=== PATIENT | female | born 1975 | race Caucasian/White ===

== ENCOUNTER → 2023-07-10 | Outpatient (CLI) | payer MEDICAID, SELFPAY ==
--- OUTSIDE RECORDS SUMMARY | 2023-07-10 11:34 | XMS RPT_ITS | CCD ---
Author Name Unknown Address [address] [place] [address] Organization [facility] Care Team Providers Care Hotel Concierge Name Role Phone GIUSEPPE, TAMARA Unavailable Unavailable VACCARIELLO, TAMARA Unavailable Unavailable VACCARIELLO, TAMARA Unavailable Unavailable UMAIR RODRIGUEZ Unavailable Unavailable PROVIDER, UNKNOWN Unavailable Unavailable PROVIDER, UNKNOWN Unavailable Unavailable PROVIDER, UNKNOWN Unavailable Unavailable ENEIDA CAMPOS DO Unavailable Unavailable BETH, ENEIDA DO Unavailable Unavailable BETHMARIA FERNANDA LAZONE DO Unavailable Unavailable Results Test Name Value Interpretation Reference Range Facil ity Encounters Encounter Date Encounter Type Care Provider Facility Start: 07-15-2017 End: 07-15-2017 Ambulatory TAMARA Caputo [facility] Payers Date Payer Category Payer Policy ID [facility] [id number] Summary Purpose Family History No Family History Records FoundNo Family History Records Found Advance Directives No Advanced Directives Records FoundNo Advanced Directives Records Found Additional Source Comments INFORMATION SOURCE (unrecogn ized section and content) DATE CREATED AUTHOR AUTHOR'S ASAD ATION 12/11/2021 [facility] FOR RECORDS PERTAINING TO PATIENTS WHO ARE OR HAVE BEEN ENROLLED IN A CHEMICAL DEPENDENCY/SUBSTANCEABUSE PROGRAM, SOME INFORMATION MAY BE OMITTED. This clinical summary was aggregated from multiple sources. Caution should be exercised in using it in the provision of clinical care. This summary normalizes information from multiple sources, and as a consequence, information in this document may materially change the coding, format and clinical context of patient data. In addition, data may be omitted in some cases. CLINICAL DECISIONS SHOULD BE BASED ON THE PRIMARY CLINICAL RECORDS. [employer] provides no warranty or guarantee of the accuracy or completeness of information in this document.
[2023-07-10 12:02] LABS: Thyroid Stim Hormone (TSH) 1.97 uIU/mL (0.358-3.74)
== END | disposition home or self-care (01) ==
LOC: LAB 10:32
PROVIDERS: PCP Family Medicine; Referring Provider Family Medicine; Visit Provider Family Medicine
DX: E03.9 Hypothyroidism, unspecified (principal)
CPT/HCPCS: 36415; 84443

== ENCOUNTER → 2023-12-11 | Outpatient (CLI) | payer MEDICAID, SELFPAY ==
[2023-12-16 11:09] LABS: HPV APTIMA, High Risk Negative (Negative)
== END | disposition home or self-care (01) ==
LOC: LABSPEC 12:03
PROVIDERS: PCP Family Medicine; Referring Provider Nurse Practitioner Family; Visit Provider Nurse Practitioner Family
DX: Z12.4 Encounter for screening for malignant neoplasm of cervix (principal)
CPT/HCPCS: 87624; 88175; G0145

== ENCOUNTER 2024-04-06 07:09 | Day surgery (SDC) | payer MEDICAID, SELFPAY ==
[2024-04-06] VITALS (8 sets, daily range): BP systolic 95–112; BP diastolic 7–78; PULSE 56–61; RESP 14–18; TEMP 36.1–36.8; O2SAT 96–100; BMI 24.3
[2024-04-06] MEDS: 0.9% Normal Saline (500mL Bag) 500 ML 15 ML IV (07:51)
--- NOTE | 2024-04-06 07:55 | PCM.PRE.AN2 ---
ASA Classification* ASA Classification ASA Classification: 2 Assessment & Plan Anesthesia* Anesthesia Assessment Anesthesia Assessment: Discussed sedation and/or anesthesia options, risks, benefits, and alternatives with patient/parents/legal guardian/POA. Questions invited. The patient/parents/legal guardian/POA seems to understand and agrees to proceed with anesthesia plan. Reviewed the physical assessment, medical history, allergy history and patient home medications list prior to surgery/procedure/anesthetic and documented any changes. Performed airway and anesthesia risk assessments. Anesthesia Type Anesthesia Type: General (see written pre anesthesia record for full assessment) Anesthesia Focused Assessment* Temperature: 98.2 F Pulse Rate: 59 Blood Pressure: 112/78 Respiratory Rate: 18 Pulse Ox: 100 Airway Assessment Mouth opens: >3 cm Mallampati Score: II Focused Labs Anesthesia Preop lab: CBC CHEMISTRY TSH 1.97 uIU/mL (0.358-3.74) 07/10/23 11:12 COAG Urine Test Negative Negative 04/03/15 06:15 Pre-Assessment Diagnosis/Proposed Procedure Planned Operative Procedure(s): CLOSED NASAL REDUCTION AND SEPTAL REDUCTION Anesthesia History Anesthesia History - carbonating stone cleaner: Anesthesia History - carbonating stone cleaner Hx Hospitalization No 03/30/24 14:05 Any Problems With Anesthesia Yes: N,V 03/30/24 14:05 Cholinesterase deficiency No 03/30/24 14:05 You/Your Family Experience No 03/30/24 14:05 fever (hyperthermia) with Relationship Recent Exposure to Contagious No 04/06/24 07:41 Disease Does patient have nerve No 03/30/24 14:05 stimulator Patient instructed to have device shut off --Does patient have Pacemaker No 04/06/24 07:41 or ICD? When Was Last Pacemaker Check QUESTION #4 FULL TEXT: You/Your Family Experience fever (hyperthermia) with Anesthesia Last Oral Intake Last Oral intake: Last Oral Intake NPO since 06:30 04/06/24 07:41 Meds taken in AM with sips of water? Meds patient instructed to take am of surgery PONV PONV - carbonating stone cleaner: PONV - carbonating stone cleaner Female Yes 03/30/24 14:05 HX of Motion Sickness Yes 03/30/24 14:05 HX of N/V After Surgery Yes 03/30/24 14:05 Non-Smoker Yes 03/30/24 14:05 Duration of Surgery greater No 03/30/24 14:05 than 60 minutes Number of Risk Factors 4 03/30/24 14:05 PONV Score Severe Risk 03/30/24 14:05 Height & Weight Height & Weight: Anesthesia: Height & Weight Height 5 ft 5.75 in 04/06/24 07:41 Weight: 68 kg 04/06/24 07:41 Body Mass Index (BMI) 24.3 04/06/24 07:41 Respiratory Assessment Respiratory Assessment - carbonating stone cleaner: Respiratory Tract Infection Hx - carbonating stone cleaner Hx Respiratory Tract Infection No 03/30/24 14:05 STOP Sleep Apnea STOP Sleep Apnea - carbonating stone cleaner: STOP Sleep Apnea - carbonating stone cleaner Hx Hypertension No 03/30/24 14:05 Hx Sleep Apnea No 03/30/24 14:05 CPAP No 07/10/23 11:26 BIPAP No 07/10/23 11:26 Do you snore loudly (louder No 03/30/24 14:05 than talking or can be heard Do you often feel tired/ No 03/30/24 14:05 fatigued/ sleepy during daytime? Has anyone observed you stop No 03/30/24 14:05 breathing during sleep? STOP Results Negative 03/30/24 14:05 QUESTION #5 FULL TEXT : Do you snore loudly (louder than talking or can be heard through closed doors)? 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 Specify any problems Hx of Preganancy in last 3 No 03/30/24 14:05 Months Nurse Filling Out Transfusion DSCHRIBER 03/30/24 14:05 & Questions: Date: 03/30/24 03/30/24 14:05 Time: 14:07 03/30/24 14:05 Patient unable to answer at this time (ie. confused, unrespo /Reproduction History /Reproductive History - carbonating stone cleaner: /Reproductive Hx- carbonating stone cleaner Hx Now No 03/30/24 14:05 Gestational Age (in weeks): EDC: Hx Hx Para Hx Section SAB No 03/30/24 14:05 Active Medications Active Medications: Current Medications Generic Name Dose Route Start Last Admin Trade Name Freq PRN Reason Stop Dose Admin Sodium Chloride 500 mls @ 15 mls/hr 04/06/24 07:30 04/06/24 07:51 IV 15 mls/hr .[id number] ARELIS Administration PFSH Medical History Wears contact lenses Injury of head and neck Former smoker Hx of reduction of nasal fracture Hypothyroidism Home Medications ?Medication ?Instructions ?Recorded ?Last Taken ?Type multivitamin 1 tab PO DAILY 12/11/23 04/05/24 History thyroid (pork) 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 12/11/23 04/05/24 History Thyroid) Allergy/AdvReac Type Severity Reaction Status Date / Time No Known Allergies Allergy Verified 04/06/24 07:37 Family History Grandfather Pancreatic cancer Surgical History S/P breast augmentation S/P wrist surgery Social History Smoking Status: Former smoker alcohol intake: current details: occasionally substance use type: does not use caffeine: Yes what type of physical activity do you participate in: none seatbelt use: never do you feel safe at home: Yes additional social history: Single Review of Systems (Anesthesia) ROS Narrative System reviewed and no additional complaints, except as documented.
--- NOTE | 2024-04-06 08:24 | PCM.DC ---
Discharge Instructions Diet Discharge Diet: No restrictions Activity Discharge Activity: Return to Normal Activity Additional Activity Instructions:: keep nasal cast dry. the morning of your follow up appointment, get the cast very wet. Dressing / Incision Call your doctor if your incision/area has: Increased Pain/ Swelling Follow Up Care Please Follow Up With: Nilay Larsen MD When: 1 week Test Results: Test results from this visit will be discussed in further detail at your follow-up appointment, if applicable. 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
[2024-04-06] MEDS: Oxymetazoline 0.05% 1 SPRAY SPRAY.BTL 15 SPRAY (08:34)
--- NOTE | 2024-04-06 08:36 | PCM.OPRPT ---
Problems Associated Problem List Diagnoses (1) Nasal bone fracture: (2) Nasal septum fracture: Report of Operation Date of Procedure: 04/06/24 Pre-Operative Diagnosis: 1. nasal bone fracture 2. nasal septal fracture Post-Operative Diagnosis: 1. nasal bone fracture 2. nasal septal fracture Surgery/Procedure Performed:: 1. closed reduction nasal bone fracture 2. closed reduction nasal septal fracture Surgeon: Nilay Larsen Type of Anesthesia: General Description of Procedure: on the day of the procedure after appropriate informed consent was obtained, the patient was brought to the operating room and placed in supine position on the operating table. she was placed under general anesthesia by the anesthesiologist using a LMA. afrin-soaked pledgets were placed. using a boies elevator and digital pressure, the nasal bones and septum were returned back to the midline. she was awoken from anesthesia and transferred to the PACU in stable condition.
--- NOTE | 2024-04-06 09:05 | PCM.POST.ANE ---
Anesthesia: Postop Eval I Current Vital Signs Temperature: 96.9 F Pulse Rate: 58 Blood Pressure: 95/62 Respiratory Rate: 14 Pulse Ox: 98 Assessment Airway patent: Yes Spontaneous unlabored respirations: Yes nausea: No Vomiting: No Anesthesia Complication: No Fluid Hydration Crystalloid volume administer (ml): 1,000 Total IV fluid infused: 1,000 Progress Note Anesthesia document: Postop Eval 1 completed: Yes
--- NOTE | 2024-04-06 09:06 | PCM.POSTANE2 ---
Anesthesia Postop Eval I Sum Postop Eval Completion status Anesthesia document: Postop Eval 1 completed: Yes Anesthesia Postop Eval I Summary Anesthesia Postop Eval I Summary: Anesthesia Postop Eval I: Assessment Summary Airway patent Yes 04/06/24 09:06 Spontaneous unlabored Yes 04/06/24 09:06 respirations Mental status nausea No 04/06/24 09:06 Vomiting No 04/06/24 09:06 Anesthesia Postop Eval I: Fluid Summary Crystalloid volume administer 1,000 04/06/24 09:06 (ml) Colloids volume administered ( ml) Blood Product volume administered (ml) Total IV fluid infused 1,000 04/06/24 09:06 Anesthesia Postop Eval I: Summary Notes Anesthesia Complication No 04/06/24 09:06 Anesthesia Complication Comment: Post-operative progress note Anesthesia: Postop Eval II Evaluation Mental status: Awake Pain Level: 0 nausea: No Vomiting: No
== END 2024-04-06 09:57 | disposition home or self-care (01) ==
LOC: SDC 07:11 → AC 07:12
PROVIDERS: PCP Family Medicine; Referring Provider Otolaryngology; Visit Provider Otolaryngology
PROC: 0NSBXZZ Reposition Nasal Bone, External Approach (ICD-10-PCS; CPT 21315; principal; 2024-04-06 08:25)
DX: S02.2XXA Fracture of nasal bones, initial encounter for closed fracture (principal); Z87.891 Personal history of nicotine dependence; Z98.82 Breast implant status; Z87.81 Personal history of (healed) traumatic fracture; E03.9 Hypothyroidism, unspecified; V80.919A Animal-rider injured in unspecified transport accident, initial encounter
CPT/HCPCS: 21315; 00160; J7040; J2405

== ENCOUNTER → 2024-10-01 | Outpatient (CLI) | payer MEDICAID, SELFPAY | END | disposition home or self-care (01) | LOC: LAB 16:03 | PROVIDERS: PCP Family Medicine; Referring Provider Family Medicine; Visit Provider Family Medicine | DX: E03.9 Hypothyroidism, unspecified (principal) | CPT/HCPCS: 36415; 84443 ==

== ENCOUNTER → 2024-10-07 | Outpatient (CLI) | payer MEDICAID, SELFPAY ==
--- NOTE | 2024-10-07 09:50 | LES_PTH ---
PATIENT: LORENA SCHROEDER LOC: [facility] U#:[id number] AGE/SX: 49/F ROOM: RE10/07/[address]: Dr. Kirk Conley MD : 1975 BED: DIS: 10/07/2024 SPEC #: [id number] RECD: 10/07/24 15:00 STATUS: AIDEN RAMIREZ #: [id number] AIME: 10/07/24 09:[address]: Kirk Conley DEPT: SURGICAL PATHOLOGY RECD BY: Brian Collier ENTERED: 10/07/24 15:00 SP TYPE: Lesion OTHR DR: Dr. Erasmo Velazquez MD Tissues: A - Skin of leg, NOS Procedures: Surgery Specimen Level IV HEADER OPERATION: Excision skin lesion of left thigh PRE-OP DIAGNOSIS: Skin lesion excision TISSUE SUBMITTED: A- Skin lesion of left thigh MICROSCOPIC DIAGNOSIS A. Skin, left thigh, excision: * Dermatofibroma MICROSCOPIC DESCRIPTION Slides are reviewed. GROSS DESCRIPTION A. Received in formalin in a container labeled with the patient's name, date of , and skin lesion is an unoriented and elliptical 2.4 x 1.6 cm skin excision with a depth of 1.4 cm. The white-pappas epidermis is notable for a 0.6 x 0.4 x 0.2 cm white-pappas glistening nodule situated 0.3 cm from the peripheral margin. The deep margin is inked green, and serial sections reveal pappas-german, glistening surfaces that extend 0.5 cm deep, but are approximately 0.9 cm from the deep margin. Repair Technician sections:A1. Tips, en faceA2. Nodule B 10/08/2024 CPT:63915
== END | disposition home or self-care (01) ==
LOC: LABSPEC 14:41
PROVIDERS: PCP Family Medicine; Referring Provider Surgery; Visit Provider Surgery
DX: D23.72 Other benign neoplasm of skin of left lower limb, including hip (principal)
CPT/HCPCS: 88305

== ENCOUNTER 2024-10-21 12:00 | Outpatient (CLI) | payer MEDICAID, SELFPAY ==
--- NOTE | 2024-10-21 11:50 | EMB_PTH ---
PATIENT: LORENA SCHROEDER LOC: [facility] U#:[id number] AGE/SX: 49/F ROOM: RE10/21/[address]: AIDA Schulz : 1975 BED: DIS: 10/21/2024 SPEC #: [id number] RECD: 10/21/24 13:41 STATUS: AIDEN REQ #: [id number] AIME: 10/21/24 11:[address]: Marquita Belcher NP DEPT: SURGICAL PATHOLOGY RECD BY: Brian Collier ENTERED: 10/21/24 13:41 SP TYPE: ENDOM BX/C JOANNE DR: Dr. Erasmo Velazquez MD Tissues: A - Endometrium, NOS Procedures: Surgery Specimen Level IV HEADER OPERATION: Endometrial biopsy PRE-OP DIAGNOSIS: Abnormal uterine bleeding TISSUE SUBMITTED: A- Endometrial tissue MICROSCOPIC DIAGNOSIS A. Endometrial tissue, biopsy: * Proliferative endometrium. MICROSCOPIC DESCRIPTION Slides are reviewed. GROSS DESCRIPTION A. Received in formalin in a container labeled with the patient's name, date of , and with the accompanying paperwork indicating, endometrial tissue are multiple pappas-pink fragments of soft tissue admixed with blood and mucus measuring 1.3 x 1.1 cm in aggregate. Submitted in toto in A1. [facility] 10-21-2024 CPT:10269
== END 2024-10-21 23:59 | disposition home or self-care (01) ==
LOC: LABSPEC 12:00
PROVIDERS: PCP Family Medicine; Referring Provider Nurse Practitioner Women's Health; Visit Provider Nurse Practitioner Women's Health
DX: N93.9 Abnormal uterine and vaginal bleeding, unspecified (principal)
CPT/HCPCS: 88305

== ENCOUNTER → 2024-10-27 | Outpatient (CLI) | payer MEDICAID, SELFPAY ==
--- NOTE | 2024-10-27 12:10 | US_ITS ---
PROCEDURE: PELVIC W/ TRANSVAGINAL REASON FOR EXAM: MENORRHAGIA TECHNIQUE: Transabdominal and transvaginal pelvic ultrasound COMPARISON: None FINDINGS: Measurements: Uterus: 7.3 x 4.1 x 4.7 cm for volume of 73.1 mL Endometrial Thickness: 0.5 cm Right Ovary: 2.7 x 1.8 x 2.6 cm for volume of 6.8 mL Left Ovary: 2.7 x 1.8 x 1.7 cm for volume of 4.4 mL TRANSABDOMINAL: Uterus: Normal size, myometrial echotexture, and contour. Endometrium: Unremarkable. The ovaries were not visualized transabdominally. Transvaginal sonography was also performed TRANSVAGINAL: Uterus: Anteverted. Normal contour and myometrial echotexture. Endometrium: Normal echotexture. Right ovary: Normal size and echotexture. Left ovary: Normal size and echotexture. Other adnexal findings: None. Cul-de-sac: No free intraperitoneal fluid identified. US/Pelvic w/ Transvaginal IMPRESSION: NORMAL TRANSABDOMINAL AND TRANSVAGINAL PELVIC ULTRASOUND. Reading Location: [id number]
[2024-10-27 17:06] LABS: Absolute Lymphocyte Count 1.78 X10^3/uL (0.83-4.51); Absolute Neutrophil Count 3.7 X10^3/uL (2.0-7.7); Basophil# 0.05 X10^3/uL; Basophil% 0.8 % (0-1); Eosinophil# 0.08 X10^3/uL; Eosinophils% 1.3 % (0-5); Hematocrit 40.8 % (37-47); Hemoglobin 13.5 g/dL (12.0-15.0); Lymphocyte # 1.78 X10^3/ul (0.83-4.51); Lymphocyte % 29.3 % (19-41); Mean Corp Hgb Conc 33.1 g/dL (32-36); Mean Corpuscular Hgb 30.2 pg (27.0-32.0); Mean Corpuscular Volume 91.3 fL (81-99); Mean Platelet Vol. 10.6 fl (6.2-12.0); Monocyte# 0.44 X10^3/uL; Monocyte% 7.2 % (0-10); NRBC Flagged by Analyzer 0 % (0-5); Neutrophil % 61.1 % (47-70); Platelet Count 329 K/mm3 (150-450); RBC Distribution Width CV 13.7 % (11.6-14.6); RBC Distribution Width SD 46.1 fl (35.1-43.9); Red Blood Count 4.47 M/mm3 (4.2-5.4); White Blood Count 6.1 K/mm3 (4.4-11.0)
== END | disposition home or self-care (01) ==
LOC: OPUS 12:08
PROVIDERS: Obstetrics & Gynecology; PCP Family Medicine; Referring Provider Nurse Practitioner Women's Health; Visit Provider Nurse Practitioner Women's Health
DX: N92.1 Excessive and frequent menstruation with irregular cycle (principal)
CPT/HCPCS: 36415; 76830; 76856; 85025; 86850; 86900; 86901

== ENCOUNTER 2024-11-16 10:25 | Day surgery (SDC) | payer MEDICAID, SELFPAY ==
[2024-11-16] VITALS (10 sets, daily range): BP systolic 110–134; BP diastolic 76–99; PULSE 62–91; RESP 12–16; TEMP 36.2–37.1; O2SAT 98–100; BMI 25.0
--- NOTE | 2024-11-16 07:45 | HP.PCM_ITS ---
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 Connie Verma MD) Smoking Status: Former smoker alcohol intake: current details: occasionally substance use type: does not use caffeine: Yes what type of physical activity do you participate in: none seatbelt use: never do you feel safe at home: Yes additional social history: Single has zack's curl up and in [facility] SURGICAL CONSULT Details: ZACK SCHROEDER is a 49 year old who presents for irregular heavy bleeding lasting 1-2 weeks and occuring every 2 weeks. she has used a mirena iud in the past and had migraines and other side effects. she is wanting definitive management for heavy menses. she had an emb and results pending- now back and WNL. she does not do well with hormones, has tried natural supplements for bleeding with no improvement Female Reproductive History Cycle Length: <21 Menopausal Symptoms: No night sweats History 2 Elective abortions Hx Para 1 Spontaneous abortions Hx # Term Pregnancies Ectopic pregnancies Hx # Pregnancies Multiple births # of living children Past Pregnancies Del. Date Name GA/Weeks Outcome Route Bth Weight Gen Labor Lgth Anesthesia Del Locat Provider FOB Unknown Jose F Male ROS Const Constitutional: Denies fatigue, night sweats, weight gain or weight loss ENT ENT: Reports system reviewed and no additional complaints, except as documented Cardio Card: Denies chest pain Resp Resp: Denies cough or dyspnea GI GI: Reports as per HPI; Denies abdominal pain, constipation, nausea or vomiting : Denies nipple discharge, urinary frequency, urinary incontinence, urinary hesitancy, urinary urgency, vaginal discharge, vaginal dryness, vaginal odor or vaginal pruritus Musc Musc: Denies arthralgias, back pain or muscle weakness Skin Skin/Breast: Denies alopecia, change in hair, dry skin, breast mass, breast pain, breast skin changes or nipple discharge Neuro Neuro: Reports system reviewed and no additional complaints, except as docum ented Psych Psych: Reports system reviewed and no additional complaints, except as documented Endo Endo: Denies cold intolerance, excessive sweating, heat intolerance or polydipsia Davis/Lymph Hematologic/Lymphatic: Denies easy bleeding, Denies easy bruising and Denies lymphadenopathy Exam Const General: cooperative, healthy appearing, comfortable and no acute distress Orientation: alert [facility] Head: normal to inspection and normocephalic Ears: hearing grossly normal bilaterally and external ears normal Nose: external nose normal and nares normal Face and sinus: normal facial exam Neck Neck: normal visual inspection and no lymphadenopathy Thyroid: thyroid normal Chest Chest palpation & inspection: normal inspection of the chest Resp Effort & Inspection: normal respiratory effort Auscultation: clear to auscultation bilaterally Cardio Rate: regular rate Rhythm: regular rhythm Heart Sounds: S1 normal and S2 normal GI Inspection: normal to inspection and non-distended Palpation: soft and no hepatosplenomegaly Musc Other: gross motor intact no deficits, full bilateral strength Skin General: no rashes or lesions noted Neuro General: patient alert, patient awake, moves all extremities and no focal motor deficits Motor: muscle tone normal throughout Extrem General: normal to inspection and no pedal edema Psych Appearance: grossly normal Mental Status: mental status grossly normal Affect: normal affect Speech and Movement: speech and movement normal Coding Level of Care Code Off vis,est,level 4 Diagnoses Menorrhagia with irregular cycle N92.1 Assessment and Plan Assessment and Plan (1) Menorrhagia with irregular cycle: Status: Acute Comment: US, EMB WNL. declines hormonal intervention. plan edil ablation Orders: Orders CBC W/Diff, Automated 10/27/24 N92.1 - Excessive and frequent menstruation with irregular cycle Type & Screen 10/27/24 N92.1 - Excessive and frequent menstruation with irregular cycle Plan After discussing the patient's diagnosis and treatment plan options, patient wishes to proceed with surgical management. I have discussed with the patient the risks, benefits, and alternatives of the procedure which include but are not limited to risks of anesthesia, bleeding, infection, possible damage to bowel, bladder, or surrounding vasculature which could lead to additional surgery to evaluate any complications. Patient agrees to procedure and wishes to proceed. ACOG/uptodate references given for additional information regarding procedure. also counseled on sterilizaiton and wishes to proceed. plan laparoscopic bilateral salpingectomy
--- NOTE | 2024-11-16 08:03 | PCM.DC ---
Discharge Instructions Diet Discharge Diet: No restrictions DC O2, CPAP, BIPAP needs Home O2 Discharge instructions: No Dressing / Incision Discharge Activity: Return to Normal Activity, May Not Drive ( while taking narcotic pain meds, when pain free), May Shower and May Take a Tub Bath (in 7 days) May resume sexual activity in: 1 week Weight Bearing Status: Full weight bearing Dressing / Incision Call your doctor if your incision/area has: Continuous Slow Oozing, Sudden Increased Bleeding, Increased Pain/ Swelling, Increased Redness and Foul Smelling Discharge Call your doctor if you observe: Fever of 101 or Higher, Using more than 1 pad per hour, Shortness of breath, Chest pain and Uncontrolled pain Suture Line Care: Avoid Pulling/Pushing and Avoid Pinching/Bending Remove Dressing in: 1 week (if present) Cleanse incision/area with: Soap & Water and Keep Dressing Clean & Dry Follow Up Care When: Call to make an appointment with your doctor for a fu/incision check in 1-2 weeks. Test Results: Test results from this visit will be discussed in further detail at your follow-up appointment, if applicable. 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
[2024-11-16 10:52] LABS: Internal QC Validated? YES +Cl - CLEAR BKGD; Pregnancy, Urine Negative Negative
[2024-11-16] MEDS: Lactated Ringers 1,000 ML 15 ML IV (11:07)
--- NOTE | 2024-11-16 11:14 | PRE.ANES_ITS ---
ASA Classification* ASA Classification ASA Classification: 2 Assessment & Plan Anesthesia* Anesthesia Assessment Anesthesia Assessment: Discussed sedation and/or anesthesia options, risks, benefits, and alternatives with patient/parents/legal guardian/POA. Questions invited. The patient/parents/legal guardian/POA seems to understand and agrees to proceed with anesthesia plan. Reviewed the physical assessment, medical history, allergy history and patient home medications list prior to surgery/procedure/anesthetic and documented any changes. Performed airway and anesthesia risk assessments. Anesthesia Type Anesthesia Type: General Anesthesia Focused Assessment* Temperature: 98.0 F Pulse Rate: 66 Blood Pressure: 115/76 Respiratory Rate: 12 Pulse Ox: 98 Airway Assessment Mouth opens: >3 cm Mallampati Score: II Focused Labs Anesthesia Preop lab: CBC WBC 6.1 K/mm3 (4.4-11.0) 10/27/24 16:11 10/27/24 RBC 4.47 M/mm3 (4.2-5.4) 10/27/24 16:11 10/27/24 Hgb 13.5 g/dL (12.0-15.0) 10/27/24 16:11 10/27/24 Hct 40.8 % (37-47) 10/27/24 16:11 10/27/24 Plt Count 329 K/mm3 (150-450) 10/27/24 16:11 10/27/24 CHEMISTRY TSH 1.020 uIU/mL (0.300-4.200) 10/01/24 16:26 04/0 10/22 COAG Urine Test Negative Negative 11/16/24 10:35 11/16/24 Tst Clinic Negative 10/21/24 11:42 10/21/24 Pre-Assessment Diagnosis/Proposed Procedure Planned Operative Procedure(s): (N/A) Hysteroscopy,D&C Miya W/BILATERAL LAPROSCOPIC SALPING (B) Laparoscopic, Salpingectom Anesthesia History Anesthesia History - microsoft net developer: Anesthesia History - microsoft net developer Hx Hospitalization No 11/08/24 12:11 Any Problems With Anesthesia No 11/08/24 12:11 Cholinesterase deficiency No 11/08/24 12:11 You/Your Family Experience No 11/08/24 12:11 fever (hyperthermia) with Relationship Recent Exposure to Contagious No 11/16/24 11:03 Disease Does patient have nerve No 11/08/24 12:11 stimulator Patient instructed to have device shut off --Does patient have Pacemaker No 11/16/24 11:03 or ICD? When Was Last Pacemaker Check QUESTION #4 FULL TEXT: You/Your Family Experience fever (hyperthermia) with Anesthesia Last Oral Intake Last Oral intake: Last Oral Intake NPO since 06:30 11/16/24 11:03 Meds taken in AM with sips of Yes 11/16/24 11:03 water? Meds patient instructed to take am of surgery PONV PONV - microsoft net developer: PONV - microsoft net developer Female Yes 11/08/24 12:11 HX of Motion Sickness No 11/08/24 12:11 HX of N/V After Surgery No 11/08/24 12:11 Non-Smoker Yes 11/08/24 12:11 Duration of Surgery greater No 11/08/24 12:11 than 60 minutes Number of Risk Factors 2 11/08/24 12:11 PONV Score Moderate Risk 11/08/24 12:11 Height & Weight Height & Weight: Anesthesia: Height & Weight Height 5 ft 5.75 in 11/16/24 11:03 Weight: 70 kg 11/16/24 11:03 Body Mass Index (BMI) 25.0 11/16/24 11:03 Respiratory Assessment Respiratory Assessment - microsoft net developer: Respiratory Tract Infection Hx - microsoft net developer Hx Respiratory Tract Infection No 11/08/24 12:11 STOP Sleep Apnea STOP Sleep Apnea - microsoft net developer: STOP Sleep Apnea - microsoft net developer Hx Hypertension No 11/08/24 12:11 Hx Sleep Apnea No 11/08/24 12:11 CPAP No 10/27/24 11:44 BIPAP No 10/27/24 11:44 Do you snore loudly (louder No 11/08/24 12:11 than talking or can be heard Do you often feel tired/ No 11/08/24 12:11 fatigued/ sleepy during daytime? Has anyone observed you stop No 11/08/24 12:11 breathing during sleep? STOP Results Negative 11/08/24 12:11 QUESTION #5 FULL TEXT : Do you snore loudly (louder than talking or can be heard through closed doors)? 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 Specify any problems Hx of Preganancy in last 3 No 11/08/24 12:11 Months Nurse Filling Out Transfusion JZOLLINGE 11/08/24 12:11 & Questions: Date: 11/08/24 11/08/24 12:11 Time: 12:14 11/08/24 12:11 Patient unable to answer at this time (ie. confused, unrespo /Reproduction History /Reproductive History - microsoft net developer: /Reproductive Hx- microsoft net developer Hx Now No 11/08/24 12:11 Gestational Age (in weeks): EDC: Hx Hx Para Hx Section SAB No 11/08/24 12:11 Active Medications Active Medications: Current Medications Generic Name Dose Route Start Last Admin Trade Name Freq PRN Reason Stop Dose Admin Lactated Ringer's 1,000 mls @ 15 mls/hr 11/16/24 10:45 11/16/24 11:07 IV 15 mls/hr .Q48H ARELIS Administration PFSH Medical History Wears contact lenses Injury of head and neck Former smoker Hx of reduction of nasal fracture Hypothyroidism Home Medications ?Medication ?Instructions ?Recorded ?Last Taken ?Type multivitamin 1 tab PO DAILY 12/11/2310/28 History thyroid (pork) 30 mg tablet (FAN BALANCER 30 mg PO DAILY 4 11/16/24 History Thyroid) norethindrone acetate 5 mg tablet 5 mg PO .COMPLEX #30 tabs 11/03/24 11/15/24 Rx naproxen 500 mg tablet 500 mg PO BID PRN PRN Pain # 30 tabs 11/16/24 Unknown Rx oxycodone-acetaminophen 5 mg-325 1 tab PO Q4H PRN pain 7 days #20 11/16/24 Unknown Rx mg tablet (Percocet) tabs Allergy/AdvReac Type Severity Reaction Status Date / Time No Known Allergies Allergy Verified 11/16/24 11:02 Family History Grandfather Pancreatic cancer Surgical History S/P breast augmentation S/P wrist surgery Social History Smoking Status: Former smoker alcohol intake: current details: occasionally substance use type: does not use caffeine: Yes what type of physical activity do you participate in: none seatbelt use: never do you feel safe at home: Yes additional social history: Single has [employer] and in [place] Review of Systems (Anesthesia) ROS Narrative System reviewed and no additional complaints, except as documented.
--- NOTE | 2024-11-16 12:25 | FALS_PTH ---
PATIENT: LORENA SCHROEDER LOC: [facility] [place] U#:[id number] AGE/SX: 49/F ROOM: RE11/16/[address]: Dr. Connie Verma MD : 1975 BED: DIS: 11/16/2024 SPEC #: [id number] RECD: 11/16/24 18:17 STATUS: AIDEN REQ #: [id number] AIME: 11/16/24 12:[address]: Connie Verma DEPT: SURGICAL PATHOLOGY RECD BY: Brian Collier ENTERED: 11/17/24 08:46 SP TYPE: FALL TUBES OTHR DR: Dr. Erasmo Velazquez MD Tissues: A - Fallopian tube B - Endometrium, NOS Procedures: Surgery Specimen Level II Surgery Specimen Level IV HEADER OPERATION: Hysteroscopy, D&C with bilateral laparoscopic salpingectomy PRE-OP DIAGNOSIS: Uterine fibroid, dysmenorrhea, menorrhagia TISSUE SUBMITTED: A- Bilateral fallopian tubes, B- Endometrial curettings MICROSCOPIC DIAGNOSIS A. Bilateral fallopian tubes, salpingectomy: * Benign fallopian tubes with complete cross sections obtained B. Endometrial lining, dilation and curettage: * Endometrium with inactive and secretory changes with areas of stromal breakdown MICROSCOPIC DESCRIPTION Slides are reviewed. GROSS DESCRIPTION A. Received in formalin in a container labeled with the patient's name, date of , and bilateral fallopian tubes are 2 unoriented and fimbriated fallopian tube segments. The longest measures 7 cm in length by 0.9 cm in diameter, and the shortest is 4.5 cm in length by 0.9 cm in diameter. Each display purple-german, smooth, and glistening serosa with unremarkable fimbriated ends. Each exhibit multiple small paratubal cysts ranging from 0.1 to 0.2 cm in greatest dimension. Sectioning of each reveal a pinpoint lumen. Ocean Export Agent sections:A1. Longer fallopian tubeA2. [place] fallopian tube B. Received in formalin in a container labeled with the patient's name, date of , and endometrial curettings are multiple red-pappas fragments of soft tissue admixed with blood and mucus measuring 2.1 x 0.8 x 0.4 cm in aggregate. Submitted in toto in B1. [facility] 11-17-2024 CPT:67890v8,39955
--- NOTE | 2024-11-16 12:56 | PCM.OPRPT ---
Problems Associated Problem List Diagnoses (1) Sterilization: (2) Menorrhagia with irregular cycle: Multi Select Codes Urinary/Genital Urinary/Genital CPT Codes: 34607 Miya/Novasure and 04086 Laproscopic BS/O Operative Report (Standard) Operative Information Date of Procedure: 11/16/24 Pre-Operative Diagnosis: see problem list Post-Operative Diagnosis: same Surgery/Procedure Performed: d and c hysteroscopy miya ablation laparoscopic bilateral salpingectomy mental health therapist: No Type of Anesthesia: General RN Documented Start/Stop Times: Operation Date: 11/16/24 12:25 Case Time Into Pre-Op 11/16/24 10:31 Out of Pre-Op 11/16/24 12:28 Anesthesia Start 11/16/24 12:43 Into Room 11/16/24 12:43 Procedure Start 11/16/24 13:10 Procedure End 11/16/24 13:39 Anesthesia End 11/16/24 13:51 Out of Room 11/16/24 13:51 Into Recovery 11/16/24 13:55 Out of Recovery 11/16/24 14:50 Into Phase II Recovery 11/16/24 14:52 Out of Phase II 11/16/24 15:47 Procedure Start Time: 13:10 Procedure Stop Time: 13:39 Select all DRAINS/GRAFTS/IMPLANTS that apply: None (bladder drained at beginning of procedure) Estimated Blood Loss: 25 Specimen collected: Yes Description of specimen(s) removed: endometrial curretings Description of surgery: Patient was prepped and draped in a normal sterile fashion under MAC anesthesia. A weighted speculum was placed in the vagina and the anterior lip of the cervix was grasped with a single-tooth tenaculum. Uterus was sounded and a uterine manipulator was placed after dilating. Attention was then paid to the abdominal portion of the procedure and the umbilicus was elevated with towel clamps and injected with Marcaine and after a 5 mm incision was made and the Veress needle was entered into the abdomen confirmed to be intra-abdominal with a low opening pressure of less than 5 mmHg. Abdomen was insufflated with CO2 gas and a 5 mm optical trocar was placed under direct visualization. A 5 mm port suprapubically was placed under direct visualization. Uterus was well visualized and bilateral fallopian tubes identified and bilateral tubes were elevated and transecting across the mesosalpinx and the attachment to the uterine corpus bilaterally the tubes were removed without complication. Excellent hemostasis was noted. Fallopian tubes were removed through the lower port sites without complication. Liver and upper abdomen were visualized notably within normal limits and no other gross abnormalities were seen in the abdomen. All instruments removed from the abdomen after gas was desufflated. Port sites were closed with 3-0 Monocryl Steri's and op sites were applied. cervix was progressively dilated to allow passage of a 7 mm hysteroscope. The lining was fully visualized and noted to have no polyps or abnormalities. Uterus sounded to 7.5 cm. Curettage was performed and tissue was sent to pathology. The Miya device was opened and the cavity length was found to be 4.5 cm. Device was inserted into the uterus and balloon inflated and device deployed. Integrity of the cavity was confirmed and a 2 minute treatment cycle was completed without complication. All instruments were removed from the vagina and excellent hemostasis was noted. Patient was awoken and taken to recovery in stable condition. Surgical Findings: nl uterus tubes ovaries Complications Complications: No
[2024-11-16] MEDS: Lidocaine 1% (30 ml sdv) 30 ML Vial (13:41)
--- NOTE | 2024-11-16 14:00 | PCM.POST.ANE ---
Anesthesia: Postop Eval I Current Vital Signs Temperature: 97.2 F Pulse Rate: 91 Blood Pressure: 118/83 Respiratory Rate: 16 Pulse Ox: 99 Oxygen Delivery Method: Room Air Assessment Airway patent: Yes Spontaneous unlabored respirations: Yes Mental status: Awake and Calm nausea: No Vomiting: No Anesthesia Complication: No Fluid Hydration Crystalloid volume administer (ml): 900 Total IV fluid infused: 900 Progress Note Anesthesia document: Postop Eval 1 completed: Yes
[2024-11-16] MEDS: Ketorolac 30 MG/ML Syringe IV (14:30)
--- NOTE | 2024-11-16 15:39 | POSTOPAN2_ITS ---
Anesthesia Postop Eval I Sum Postop Eval Completion status Anesthesia document: Postop Eval 1 completed: Yes Anesthesia Postop Eval I Summary Anesthesia Postop Eval I Summary: Anesthesia Postop Eval I: Assessment Summary Airway patent Yes 11/16/24 14:01 SITE ACQUISITION MANAGER.[email or web address] Spontaneous unlabored Yes 11/16/24 14:01 SITE ACQUISITION MANAGER.[email or web address] respirations Mental status Awake,Calm 11/16/24 14:01 SITE ACQUISITION MANAGER.GDOTT nausea No 11/16/24 14:01 SITE ACQUISITION MANAGER.GDOTT Vomiting No 11/16/24 14:01 SITE ACQUISITION MANAGER.GDOTT Anesthesia Postop Eval I: Fluid Summary Crystalloid volume administer 900 11/16/24 14:01 SITE ACQUISITION MANAGER.GDOTT (ml) Colloids volume administered ( ml) Blood Product volume administered (ml) Total IV fluid infused 900 11/16/24 14:01 SITE ACQUISITION MANAGER.GDOTT Anesthesia Postop Eval I: Summary Notes Anesthesia Complication No 11/16/24 14:01 SITE ACQUISITION MANAGER.GDOTT Anesthesia Complication Comment: Post-operative progress note Anesthesia: Postop Eval II Evaluation Mental status: Awake Pain Level: 0 nausea: No Vomiting: No
--- NOTE | 2024-11-16 15:39 | PCM.POSTANE2 ---
Anesthesia Postop Eval I Sum Postop Eval Completion status Anesthesia document: Postop Eval 1 completed: Yes Anesthesia Postop Eval I Summary Anesthesia Postop Eval I Summary: Anesthesia Postop Eval I: Assessment Summary Airway patent Yes 11/16/24 14:01 BANK WORKER.[email or web address] Spontaneous unlabored Yes 11/16/24 14:01 BANK WORKER.GDOTT respirations Mental status Awake,Calm 11/16/24 14:01 BANK WORKER.GDOTT nausea No 11/16/24 14:01 BANK WORKER.GDOTT Vomiting No 11/16/24 14:01 BANK WORKER.GDOTT Anesthesia Postop Eval I: Fluid Summary Crystalloid volume administer 900 11/16/24 14:01 BANK WORKER.GDOTT (ml) Colloids volume administered ( ml) Blood Product volume administered (ml) Total IV fluid infused 900 11/16/24 14:01 BANK WORKER.GDOTT Anesthesia Postop Eval I: Summary Notes Anesthesia Complication No 11/16/24 14:01 BANK WORKER.GDOTT Anesthesia Complication Comment: Post-operative progress note Anesthesia: Postop Eval II Evaluation Mental status: Awake Pain Level: 0 nausea: No Vomiting: No
== END 2024-11-16 15:47 | disposition home or self-care (01) ==
LOC: SDC 10:25 → AC 10:26
PROVIDERS: Anesthesiology; PCP Family Medicine; Referring Provider Obstetrics & Gynecology; Visit Provider Obstetrics & Gynecology
PROC: 0U5B8ZZ Destruction of Endometrium, Via Natural or Artificial Opening Endoscopic (ICD-10-PCS; CPT 58558; principal; 2024-11-16 12:10)
PROC: (CPT 58661; 2024-11-16 12:10)
DX: N85.8 Other specified noninflammatory disorders of uterus (principal); N92.1 Excessive and frequent menstruation with irregular cycle; Z87.891 Personal history of nicotine dependence; Z30.2 Encounter for sterilization; E03.9 Hypothyroidism, unspecified; Z79.890 Hormone replacement therapy
CPT/HCPCS: 58563; 58661; 00952; 81025; 86850; 86900; 86901; 88302; 88305; J2405

== ENCOUNTER → 2024-11-29 | Outpatient (CLI) | payer MEDICAID, SELFPAY | END | disposition home or self-care (01) | LOC: LABSPEC 16:08 | PROVIDERS: PCP Family Medicine; Referring Provider Obstetrics & Gynecology; Visit Provider Obstetrics & Gynecology | DX: R30.0 Dysuria (principal) | CPT/HCPCS: 87077; 87086; 87088 ==